=== PATIENT | female | born 2000 | race Caucasian/White ===

== ENCOUNTER → 2020-02-19 | Outpatient (CLI) | payer BC ==
--- NOTE | 2020-02-19 16:32 | KCIC ---
EXAM: CT right foot was performed without IV contrast DATE: 02/19/2020 3:30 PM COMPARISON: No prior INDICATION: CLOSED FX RIGHT FOOT, Navicular fx. seen on recent xray. Fall, injury, right foot pain TECHNIQUE: CT of the right foot was performed without IV contrast. Axial, coronal and sagittal reformatted images were generated. PQRS compliance statement - One or more of the following individualized dose reduction techniques were utilized for this study: 1. Automated exposure control 2. Adjustment of the mA and/or kV according to patient size 3. Use of iterative reconstruction technique FINDINGS: A nondisplaced fracture of the dorsal navicular is seen at the talonavicular joint, likely from capsular ligamentous avulsion. In addition there is an essentially nondisplaced fracture of the anterolateral process of the calcaneus. No definite additional fracture is identified. Moderate dorsal forefoot and midfoot soft tissue swelling is seen. The lateral flexor tendons are seen posterior to the lateral malleolus. Visualized flexor and extensor tendons are grossly intact without significant tenosynovitis. Is grossly normal muscle bulk without fatty atrophy. IMPRESSION: 1. Nondisplaced dorsal navicular fracture at the talonavicular joint 2. In addition nondisplaced fracture of the anterolateral process calcaneus is also seen. Electronically signed by: Edwin Verduzco MD (02/19/2020 4:29 PM) MAMI
== END ==
LOC: KCIC CT 15:12
PROVIDERS: ATTEND Orthopaedic Surgery Sports Medicine
DX: S92.254A Nondisplaced fracture of navicular [scaphoid] of right foot, initial encounter for closed fracture (principal); S92.024A Nondisplaced fracture of anterior process of right calcaneus, initial encounter for closed fracture; X58.XXXA Exposure to other specified factors, initial encounter; Y93.89 Activity, other specified; Y92.89 Other specified places as the place of occurrence of the external cause; Y99.8 Other external cause status
CPT/HCPCS: 73700